=== PATIENT | female | born 1975 | race Caucasian/White ===

== ENCOUNTER 2016-11-30 06:37 | Emergency (ER) | payer OTHER ==
[2016-11-30 06:44] VITALS: BP 122/75
--- NOTE | 2016-11-30 07:05 | ERNOTE ---
Medical Problem HPI - General Chief Complaint: General Assessment Time Seen by Provider: 11/30/16 06:51 Source: patient Exam Limitations: no limitations - Immun/Allergies/Home Medications Immunizations: IMMUNIZATION HX Immunizations Up to Date Yes History of Influenza Vaccine Yes Hx Pneumococcal Vaccination No Allergies/Adverse Reactions: Allergies No Known Allergies Allergy (Verified 11/30/16 06:44) Home Medications: HOME MEDICATIONS Medroxyprogesterone Acetate [Depo-Provera Contraceptive] 150 mg IM Q90D [Last Taken Unknown] Nystatin 5 ml PO QID #150 ml 11/30/16 [Last Taken Unknown] - History of Present History Narrative: Pt states that she began to have swelling in her lower lip yesterday. She has had this previously and eventually was diagnosed with thrush and oral anti- fungal was able to resolve her symptoms Timing: getting worse Severity: moderate Modifying Factors - (Worsens): Present: eating Review of Systems - Review of Systems Constitutional: Absent: fever EYE: Present: no symptoms reported ENT: Present: other - some soreness to mucosal tissue in lower mouth. Absent: sore throat, throat swelling Respiratory: Present: no symptoms reported Cardiology: Present: no symptoms reported Gastrointestinal/Abdominal: Present: no symptoms reported Skin: Absent: rash All Other Systems: All systems neg except as marked - Patient's Past Medical History Patient History - Medical: No pertinent hx Patient History - Cardiac/Respiratory: No pertinent hx Patient History - Cancer: No Hx of Cancer Patient History - Surgical Procedures: No surgical history Patient History - Other: None - Family History mom Family History - Medical: No pertinent hx dad Family History - Cardiac/Respiratory: Myocardial Infarction - Social History Living Situations: home Abuse History: No History of abuse Psych History: No pertinent hx Smoking Status: Current every day smoker Have you smoked in the past 12 months: Yes Alcohol Use: none Drug Use: none - Immunizations Immunizations Up to Date: Yes Hx Pneumococcal Vaccination: No History of Influenza Vaccine: Yes Physical Exam - Physical Exam General Appearance: Present: wd/wn, alert, no apparent distress Ears, Nose, Throat: Present: normal pharynx, other - a few erythematous areas in the lower oral mucosa. Lower lip mildly swollen without erythema, no pusutules or vesicles. Absent: nasal congestion Neck: Present: normal inspection, nontender Respiratory: Present: no respiratory distress, no accessory muscle use Neurological Exam: Present: alert, oriented, normal mood/affect, no motor/ sensory deficits Skin Exam: Present: normal color, warm/dry Lymphatic Exam: Present: no adenopathy ED Progress - Vital Signs Vital Signs: Vital Signs 11/30/16 06:41 Temperature 36.6 C Pulse Rate 106 H Respiratory 14 Rate Blood Pressure 122/75 O2 Sat by Pulse 99 Oximetry - Progress/Reassessment Chief Complaint: General Assessment Departure - Departure Clinical Impression: Thrush, oral Disposition: Home self-care Condition: Good Instructions: Thrush, Adult Additional Instructions: See your regular doctor for further workup if this recurs Prescriptions: Nystatin 5 ml PO QID #150 ml
--- OUTSIDE RECORDS SUMMARY | 2016-11-30 07:38 | XMS REPORT | Continuity of Care Document ---
:1975 Author Organization [facility] ([facility]) Address [address] [place] [address] Phone [phone] Care Team Providers Name Role [facility] [phone] Source Comments This disclosure is being made pursuant to the Care Everywhere program, applicable federal and state laws, and may not contain all informaitonavailable regarding this patient.[facility] ([facility]) Active Allergies and Adverse Reactions Not on File Current Medications Not on file Active Problems Not on file Social History Tobacco Use Types Packs/Day Years Used Date Never Assessed Plan of Care Health Maintenance Due Date Last Done Comments Hepatitis B Vaccine (1 of 3 - Primary Series) 1977 Tdap Vaccine 1988 Lipid Disorder Screening 1995 MMR Vaccine 1995 Td Vaccine 1995 Cervical Cancer Screening 2007 Influenza Vaccine: Seasonal (#1) 05/16/2016 Results from Last 3 Months Not on file
== END 2016-11-30 07:06 | disposition home or self-care (01) ==
LOC: ER 06:37
DX: F17.210 Nicotine dependence, cigarettes, uncomplicated (principal); B37.0 Candidal stomatitis

== ENCOUNTER 2017-08-26 19:21 | Emergency (ER) | payer OTHER ==
[2017-08-26] MEDS ORDERED: ONDANSETRON HCL/PF 2 MG/ML VIAL ONE ×2 (19:44→22:36)
[2017-08-26 19:53] LABS: Hematocrit 52.8 % (37.0-47.0); Hemoglobin 17.7 gm/dL (12.5-16.0); Mean Cell Volume 92.8 fl (78-100); Mean Corpuscular Hemoglobin 31.1 pg (27-31); Mean Corpuscular Hgb Conc 33.5 g/dl (32-36); Neutrophil # 11.2 K/mm3 (1.3-6.0); Neutrophil % 77.9 % (42-75.0); Platelet Count 204 K/mm3 (150-450); Red Blood Count 5.69 M/mm3 (4.2-5.4); Red Cell Distribution Width 12.6 % (11.5-14.0); White Blood Count 14.3 K/mm3 (4.0-10.5)
[2017-08-26] MEDS: NORMAL SALINE 1,000 ML IV ONE ×2 (19:57→21:01)
[2017-08-26] MEDS: ONDANSETRON HCL/PF 2 MG/ML VIAL IV ONE ×2 (19:58→22:37)
[2017-08-26] MEDS ORDERED: DIATRIZOATE MEGLUMINE, SODIUM 30 ML BTL ONE (20:05)
[2017-08-26 20:08] LABS: Albumin * 3.9 gm/dl (3.4-5.0); Anion Gap 14.8 mmol/L (6.8-13.8); BUN/Creatinine Ratio 18.5 (9.0-21.6); Bilirubin, Total 0.5 mg/dL (0.0-1.1); Ca. Corrected For Albumin 8.7 mg/dL (8.4-10.2); Calcium * 8.9 mg/dL (7.9-10.9); Carbon Dioxide 25.8 mmol/L (24-32.6); Potassium 3.6 mmol/L (3.4-4.6); Total Protein 7.5 gm/dL (6.2-8.2)
[2017-08-26] MEDS: DIATRIZOATE MEGLUMINE, SODIUM 30 ML BTL PO ONE (20:14)
[2017-08-26 20:28] LABS: Urine Color Yellow
[2017-08-26 20:31] LABS: Urine Appearance Clear; Urine Bilirubin Negative (NEGATIVE); Urine Nitrite Negative (NEGATIVE); Urine Urobilinogen Normal (NORMAL)
[2017-08-26 20:33] LABS: Urine Blood 250 /ul (NEGATIVE); Urine Ketone 15 mg/dL (NEGATIVE); Urine Protein 30 mg/dL (NEGATIVE); Urine WBC 0-5 /hpf (0-5)
[2017-08-26 20:35] LABS: Urine Bacteria 3+; Urine Yeast Few - 1+
[2017-08-26] MEDS ORDERED: HYDROmorphone HCL 1 MG/ML DISP.SYRIN ONE (20:40)
[2017-08-26] MEDS: HYDROmorphone HCL 1 MG/ML DISP.SYRIN IV ONE (20:41)
--- NOTE | 2017-08-26 21:02 | ERNOTE ---
Abdominal HPI - Narrative Date of Service: 08/26/17 - General Chief Complaint: Abdominal Pain Time Seen by Provider: 08/26/17 19:22 Source: patient Exam Limitations: no limitations - Immun/Allergies/Home Medications Immunizatons: IMMUNIZATION HX Immunizations Up to Date Yes History of Influenza Vaccine Yes Hx Pneumococcal Vaccination No Allergies/Adverse Reactions: Allergies No Known Allergies Allergy (Verified 11/30/16 06:44) Home Medications: HOME MEDICATIONS Medroxyprogesterone Acetate [Depo-Provera Contraceptive] 150 mg IM Q90D [Last Taken Unknown] Ondansetron [Zofran Odt] 4 mg PO Q6H PRN #20 tab 08/26/17 [Last Taken Unknown] - History of Present Illness Narrative: Caesar presents to the emergency room for 12 hours of nausea vomiting diarrhea severe right lower quadrant abdominal pain. Patient has vomited 7 times today. She feels weak and tired and she persistently has this right-sided lower abdominal pain she states she also has slight dysuria and some right-sided flank pain. Patient denies fevers or chills Review of Systems - Review of Systems Constitutional: Present: malaise EYE: Present: no symptoms reported ENT: Present: no symptoms reported Respiratory: Present: no symptoms reported Cardiology: Present: no symptoms reported Gastrointestinal/Abdominal: Present: See HPI Genitourinary: Present: See HPI Musculoskeletal: Present: no symptoms reported Skin: Present: no symptoms reported - Patient's Past Medical History Patient History - Medical: No pertinent hx Patient History - Cardiac/Respiratory: No pertinent hx Patient History - Cancer: No Hx of Cancer Patient History - Surgical Procedures: No surgical history Patient History - Other: None LMP (females 10-50): unknown - Family History mom Family History - Medical: No pertinent hx Family History - Cancer: No pertinent family hx dad Family History - Medical: Family History - Cardiac/Respiratory: Myocardial Infarction Family History - Cancer: No pertinent family hx - Social History Living Situations: parents Abuse History: No History of abuse Psych History: No pertinent hx Smoking Status: Current every day smoker Have you smoked in the past 12 months: Yes Do you dip or chew tobacco: No Patient requests Smoking Cessation Consult: No Initiate information on Smoking Cessation: No Alcohol Use: none - Immunizations Immunizations Up to Date: Yes Hx Pneumococcal Vaccination: No History of Influenza Vaccine: Yes Physical Exam - Physical Exam General Appearance: Present: wd/wn, alert, no apparent distress Head Exam: Present: normal inspection - patient does not appear in any distress however she does look tired and fatigued., no evidence of injury Ears, Nose, Throat: Present: normal ENT inspection Neck: Present: normal inspection, nontender Respiratory: Present: no respiratory distress, normal breath sounds, no accessory muscle use, chest nontender, lungs clear Cardiovascular/Chest: Present: regular rate, rhythm, no murmur, normal peripheral pulses Gastrointestinal/Abdominal: Present: normal bowel sounds, nondistended, soft, tenderness - patient's abdomen is soft I do hear distant bowel sounds she does have tenderness upon direct palpation in the right lower quadrant of the abdomen based on this examiner's examination she does not have any guarding she does not have any rebound at this time. Patient any masses. Back Exam: Present: normal inspection, normal range of motion, no CVA tenderness Extremity Exam: Present: normal inspection, normal range of motion Neurological Exam: Present: alert, oriented, normal mood/affect, no motor/ sensory deficits ED Progress - Results and Orders Patient's Lab Results:: I have reviewed the patient's lab results. - Vital Signs Patient's Vital Signs:: I have reviewed the patient's vital signs. Vital Signs: Vital Signs 08/26/17 08/26/17 08/26/17 19:28 20:03 20:47 Temperature 36.4 C L 36.4 C L 36.5 C Pulse Rate 121 H 106 H 120 H Respiratory 20 20 20 Rate Blood Pressure 120/74 116/71 109/78 O2 Sat by Pulse 97 95 97 Oximetry - CT/Ultrasound CT/Ultrasound Narrative: CT of the abdomen and pelvis was read by our radiologist as no small bowel obstruction and normal appendix. - Progress/Reassessment Chief Complaint: Abdominal Pain Plan - Plan Plan: This patient's clinical symptoms coupled with blood test and CT scan results revealed that this patient has a viral gastroenteritis type of condition. She will be treated accordingly. Departure Clinical Impression: Viral gastroenteritis - Departure Disposition: Home self-care Condition: Stable Instructions: Viral Gastroenteritis, Adult, [id number] Prescriptions: Ondansetron [Zofran Odt] 4 mg PO Q6H PRN #20 tab PRN Reason: Nausea
[2017-08-26] MEDS: PROMETHAZINE HCL 25 MG in DEXTROSE 5 % IN WATER 50 ML IV ONE ×2 (21:16)
[2017-08-26 22:55] VITALS: BP 109/64
== END 2017-08-26 22:48 | disposition home or self-care (01) ==
LOC: ER 19:21
DX: A08.4 Viral intestinal infection, unspecified (principal); F17.200 Nicotine dependence, unspecified, uncomplicated
CPT/HCPCS: 36415; 74177; 80053; 81001; 85025; 96365; 96375; 99284; J2405